=== PATIENT | male | born 1960 | race Asian ===

== ENCOUNTER 2018-02-25 09:53 | Day surgery (SDC) | payer MEDICARE, OTHER ==
[~2018-02-25 09:53] MED LIST: CEFAZOLIN 2 GM/50 ML (PMX) 50 ML IVPB; LIDOCAINE 2% (SDV) 5 ML INJ; SOD CHLORIDE 0.9% 1,000 ML IV
[2018-02-25] MEDS ORDERED: BUPIVACAINE 0.25% (MPF) 30 ML INJ (10:45)
[2018-02-25] MEDS ORDERED: FENTAnyl 50 MCG/ML VIAL (12:47)
[2018-02-25] MEDS ORDERED: CEFAZOLIN 1 GM INJ (13:02)
[2018-02-25] MEDS: LIDOCAINE 2% (MDV) 20 ML INJ (13:02)
[2018-02-25] MEDS ORDERED: PROPOFOL 20 ML (13:02)
[2018-02-25] MEDS: BUPIVACAINE 0.5% (SDV) 30 ML INJ (13:02)
[2018-02-25] MEDS ORDERED: DIPHENHYDRAMINE 50 MG INJ IV (13:30)
[2018-02-25] MEDS ORDERED: MEPERIDINE 25 MG INJ IV (13:30)
[2018-02-25] MEDS ORDERED: ONDANSETRON 4 MG INJ IV (13:30)
[2018-02-25] MEDS ORDERED: IBUPROFEN 800 MG TAB PO (13:30)
[2018-02-25] MEDS ORDERED: FENTAnyl 50 MCG/ML VIAL IV ×2 (13:30)
[2018-02-25] MEDS ORDERED: HYDROmorphONE 1 MG/5 ML IV SYRINGE IV ×2 (13:30)
[2018-02-25] MEDS ORDERED: METOCLOPRAMIDE 10 MG INJ IV (13:30)
== END 2018-02-25 15:36 | disposition home or self-care (01) ==
LOC: SDS 09:53
DX: L82.1 Other seborrheic keratosis (principal); I10 Essential (primary) hypertension; E11.9 Type 2 diabetes mellitus without complications; E66.01 Morbid (severe) obesity due to excess calories
CPT/HCPCS: 14001; 82962; 88307; 93005

== ENCOUNTER 2019-02-12 02:04 | Emergency (ER) | payer MEDICARE, OTHER ==
[2019-02-12] MEDS: HYDROCODONE/APAP (10/325) TAB PO (03:36)
[2019-02-12] MEDS: DIPHTH/TET/ACEL PERTUSS (ADULT) 0.5 ML VIAL IM* (03:36)
[2019-02-12] MEDS: CEPHALEXIN 500 MG CAP PO (05:56)
[2019-02-12] MEDS: LIDOCAINE 1% (MDV) 20 ML INJ SC (06:26)
[2019-02-12] MEDS: BACITRACIN 0.9 GM OINT TOP (06:26)
== END 2019-02-12 06:26 | disposition home or self-care (01) ==
LOC: FTE 06:26
DX: S61.247A Puncture wound with foreign body of left little finger without damage to nail, initial encounter (principal); E11.9 Type 2 diabetes mellitus without complications; I10 Essential (primary) hypertension; W45.8XXA Other foreign body or object entering through skin, initial encounter; Y92.9 Unspecified place or not applicable; Z23 Encounter for immunization; Z79.84 Long term (current) use of oral hypoglycemic drugs
CPT/HCPCS: 64450; 73130-LT; 90471; 90715; 99283-25